=== PATIENT | female | born 1985 | race Caucasian/White ===

== ENCOUNTER 2018-03-29 11:33 | Inpatient (IN) | payer OTHER ==
[2018-03-29] MEDS ORDERED: EPSOM SALT 454 GM TP PRN (12:14)
[2018-03-29] MEDS ORDERED: MISOPROSTOL 200 MCG TAB PR PRN (12:14)
[2018-03-29] MEDS ORDERED: OLIVE OIL 118 ML BTL MISC PRN (12:14)
[2018-03-29] MEDS ORDERED: IBUPROFEN 600 MG TAB PO PRN (12:14)
[2018-03-29] MEDS ORDERED: LIDOCAINE 1% 300 MG/30 ML SDV SC PRN (12:14)
[2018-03-29] MEDS ORDERED: OXYTOCIN/RINGERS LACTATE 1,000 ML IV PRN (12:14)
[2018-03-29] MEDS ORDERED: TERBUTALINE SULFATE 1 MG/ML VIAL IV PRN (12:14)
[2018-03-29 12:30] LABS: PLATELET COUNT 203 10^3/uL (150-400)
[2018-03-29] MEDS: LR 1,000 ML IV PRN ×2 (12:55→14:05)
[2018-03-29] MEDS ORDERED: BUPIVACAINE 0.25% 30 ML SDV ONE (13:13)
[2018-03-29] MEDS ORDERED: fentaNYL 2MCG/ML/BUP 0.1% RTU 100 ML BAG EP ONE (13:13)
[2018-03-29] MEDS ORDERED: PHENYLEPHRINE HCL 100 MCG/ML SYR ONE (13:13)
[2018-03-29] MEDS ORDERED: fentaNYL 100 MCG/2 ML INJ ONE (13:13)
[2018-03-29] MEDS ORDERED: AMMONIA AROMATIC 1 EACH AMP IH ONE (14:13)
[2018-03-29] MEDS ORDERED: OXYTOCIN 10 UNIT/ML VIAL ONE (14:14)
[2018-03-29] MEDS ORDERED: ONDANSETRON 4 MG/2 ML VIAL IVP PRN (14:31)
--- NOTE | 2018-03-29 14:31 | PREANESOB ---
Obstetric Pre-Anesthesia Info - General Info Proposed Procedure: [place] : 3 Para: 2 NIRMAL: 03/29/18 Gestational Age: 40 week(s) and 0 day(s) - Info Status: Full Term Monitors: External FHR Pattern: Reassuring - Labor Status Cervical Dilation per last OB SVE: 6 Indications for Labor Analgesia: Pain Control Labor Epidural: Proposed Anesthesia ROS: labor pain Allergies/Adverse Reactions: Allergy/AdvReac Type Severity Reaction Status Date / Time No Known Allergies Allergy Unverified 11/10/10 18:42 Home Medications: Medication Instructions Recorded NO HOME MEDS 11/10/10 oxyCODONE/APAP 5/325 [Percocet 5 - 10 mg PO Q4-6PRN PRN #15 tab 11/10/10 5/325] Visit Medications: Generic Name Dose Route Start Last Admin Trade Name Freq PRN Reason Stop Dose Admin Lactated Ringer's 1,000 mls @ 0 mls/hr 03/29/18 12:14 Lr IV 03/30/18 12:13 PRN PRN SEE PROTOCOL CONDITIONS Protocol Per Protocol Oxytocin/Lactated Ringer's 1,000 mls @ 125 mls/hr 03/29/18 12:14 Pitocin 20 Units/Lr (Premix) IV PRN PRN Post bleeding Ibuprofen 600 mg 03/29/18 12:14 Motrin PO ONCE PRN post , pain Lidocaine HCl 300 mg 03/29/18 12:14 Lidocaine Hcl 1% SC 09/25/18 12:13 ONCE PRN episiotomy Magnesium Sulfate 454 gm 03/29/18 12:14 Epsom Salt TP 09/25/18 12:13 Q1H PRN perineal discomfort Misoprostol 800 - 1,000 mcg 03/29/18 12:14 Cytotec LA ONCE PRN Vaginal Atony/Bleeding [place] Oil 118 ml 03/29/18 12:14 Sweet Oil MISC 09/25/18 12:13 ONCE PRN perineal massage Terbutaline Sulfate 0.25 mg 03/29/18 12:14 Brethine IV 09/25/18 12:13 ONCE PRN Tachysystole Discontinued Medications Generic Name Dose Route Start Last Admin Trade Name Freq PRN Reason Stop Dose Admin Ammonia (Aromatic Spirit) Confirm 03/29/18 14:13 Ammonia Aromatic Administered 03/29/18 14:14 Dose 1 each IH .STK-MED ONE Bupivacaine HCl Confirm 03/29/18 13:13 Sensorcaine 0.25% Sdv Administered 03/29/18 13:14 Dose 30 ml .ROUTE .STK-MED ONE Fentanyl Confirm 03/29/18 13:13 Sublimaze Administered 03/29/18 13:14 Dose 100 mcg .ROUTE .STK-MED ONE Fentanyl/Bupivacaine HCl Confirm 03/29/18 13:13 Fentanyl/Bupivacaine/Ns 2 Mcg/Ml 0.1% (Premix Administered 03/29/18 13:14 Dose 100 ml EP .STK-MED ONE Oxytocin Confirm 03/29/18 14:14 Pitocin Administered 03/29/18 14:15 Dose 10 unit .ROUTE .STK-MED ONE Phenylephrine HCl Confirm 03/29/18 13:13 Neosynephrine Administered 03/29/18 13:14 Dose 1,000 mcg .ROUTE .STK-MED ONE - Anesthesia History Response to Local Anesthetics: Normal Anesthesia & Operative History: No Prior Problems Family Anesthesia History: Not Applicable - Social History Substance Use/Abuse: Denies - Vital Signs Height/Weight (Nursing): Height 152.4 cm Weight 73.482 kg - Focused Exam Neck exam: FROM Mallampati Score: Class 2 Mouth exam: normal dental/mouth exam Pulmonary: no respiratory distress Cardiovascular: regular rate and rhythym Labs: 03/29/18 12:15 Patient ABO/Rh O POSITIVE 03/29/18 12:15 - Plan Consent Signed and on Chart: Yes Patient/Guardian Understands and Agrees to Plan: Yes Urgent/Emergent Case: Aniket ferrer completed preop but documented later for safe timely pt care
--- NOTE | 2018-03-29 14:47 | GHP ---
DATE OF ADMISSION: 03/29/2018 ADMISSION DIAGNOSIS: Intrauterine at 40 weeks' gestation, in active labor. HISTORY: The patient is a 32-year-old 3, para 2-0-0-2 who is 40 weeks' gestation. Her estim ated date of confinement is 03/29/2018 dated by a 7 week 4 day ultrasound due to a history of irregul ar cycles. The patient received care with the midwives starting at 7 weeks 4 days. Her pre gnancy has been uncomplicated. was unplanned. She had taken Plan B, but is accepting of t he . Patient began having contractions yesterday last night at 11 p.m. They began increasi ng in frequency and intensity at 10 o'clock in the morning. She arrived and was found to be dilated to 4 cm. She requested and received an epidural, which has been providing adequate pain relief. 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 MEDICATIONS: vitamins and iron. SURGICAL HISTORY: Cholecystectomy. And CAD under medical history ALLERGIES: No known drug allergies. FAMILY MEDICAL HISTORY: Noncontributory. SOCIAL HISTORY: Patient is . She lives with her . She denies tobacco, alcohol, or dr ug use. SUPPLY OFFICER HISTORY: Menarche age 13. Periods every 38 days, lasting 7 days. She is a 3, para 2 -0-0-2. In 01/2005 she had a spontaneous vaginal delivery at 40 weeks' gestation of a 7 pound 3 ounc e male infant. She was induced with that . In 03/2010 she had a spontaneous vaginal delive ry of a 6 pound 9 ounce female . Current has been uncomplicated. Patient does have a history of abnormal Pap smear and had cryosurgery in 2004. Pap smears have been normal since then. She denies any history of any sexually transmitted diseases. REVIEW OF SYSTEMS: Ten-point review of systems is negative with the exception of the above-mentioned pertinent positives. Positive movement delays. Denies any loss of fluid or vaginal bleeding. Denies any headache or changes in vision. PHYSICAL EXAMINATION: VITAL SIGNS: Stable. GENERAL APPEARANCE: She is alert and oriented x3. PSY CH: Appropriate affect. MUSCULOSKELETAL: Grossly intact. NEURO: Grossly intact. NECK: Mobile a nd supple. CARDIOVASCULAR: Heart rate is irregularly irregular. LUNGS: Clear to auscultation bila terally. ABDOMEN: Gravid, nondistended, nontender. The patient is having contractions every 5-7 mi nutes. status is category 1 reactive NST. is in the vertex presentation. EXTREMITIES: Reveal no calf tenderness or edema. LABS: Blood type O positive. Antibody screen negative. Rubella immune. GBS negative. HB sAg negative. HIV negative. Her 50 g glucose was 122. She is an SMA carrier, the father of the bab y is negative. ASSESSMENT AND PLAN: A 32-year-old 3, para 2-0-0-2, at 40 weeks' gestation in active labor. The patient has requested an epidural and is resting comfortably. She will be assessed several hour s later, and we will discuss augmentation as needed. /[id number]/MODL
[2018-03-29] MEDS ORDERED: fentaNYL 2MCG/ML/BUP 0.1% RTU 100 ML EP SCH (15:00)
[2018-03-29] MEDS ORDERED: LR 500 ML IV SCH (15:00)
--- NOTE | 2018-03-29 17:26 | OBPROG ---
Labor Progress Note Assessment/Plan: Assessment: Plan: Subjective/Intrapartum Course: 03/29/18 17:13 patient comfortable with epidural. rested for an hour. was rechecked and found to be completely dilated. arom. small amount of clear fluid. began pushing. not pushing well due to epidural. trying multiple positions. Objective: 03/29/18 12:15 Patient ABO/Rh O POSITIVE 03/29/18 12:15 - SVE Dilation (cm): 10 Effacement (%): 100 Station: +2, +3 Membranes: AROM Amniotic Fluid Color: Meconium Stained (light) - Contraction Pattern Assessment Current Contraction Pattern: Irregular - FHR Assessment [place] FHR Pattern Variability: Moderate FHR Category: 1 - Procedures Non-surgical Procedures: Amniotomy - AP Antepartum Course: 03/29/18 17:33 unintended but welcome . initiated care at 7 weeks. hx long cycles. dated by 7 weeks scan. saw midwives for care. contractions began last night. arrived in active labor. requested epidural. quick progress. Oxytocin Orders Assessment - Pre-Induction/Augmentation Assessment Gestational Age: 40 week(s) and 0 day(s) ICD10 Worksheet Patient Problems: Problems Problem Status Onset Delivery normal Acute
[2018-03-29] MEDS ORDERED: HYDROCORTISONE 0.5% CREAM TP PRN (17:36)
[2018-03-29] MEDS ORDERED: SIMETHICONE 80 MG TAB CHEW PO PRN (17:36)
--- NOTE | 2018-03-29 17:42 | OBDEL ---
Info Type: Vaginal Presentation at Delivery: Vertex L&D Analgesia/Anesthesia Type: Epidural GBS+: No - Hospital Course Intrapartum: 03/29/18 17:13 patient comfortable with epidural. rested for an hour. was rechecked and found to be completely dilated. arom. small amount of clear fluid. began pushing. not pushing well due to epidural. trying multiple positions. Indications for Delivery: Spontaneous Labor Vaginal Delivery - Delivery Provider Delivery Physician/CNM: Lori Burnett - Labor and Delivery Onset of Contractions Date: 03/29/18 Onset of Contractions Time: 10:00 Onset of Contractions Type: Spontaneous Rupture of Membranes Date: 03/29/18 Rupture of Membranes Time: 16:20 Rupture of Membranes Type: Artificial Amniotic Fluid Color: Meconium Stained (light) Dilation Complete Date: 03/29/18 Dilation Complete Time: 16:20 Placenta Delivery Date: 03/29/18 Placenta Delivery Time: 17:22 Total Hours of Labor: 7 Non-surgical Procedures: Amniotomy Vaginal Sponge Count Correct: Yes Vaginal Needle Count Correct: Yes Vaginal Sweep Performed: Yes EBL: 200 Delivery Events: Other (Specify) (trailing membranes removed. uterus explored after. no additional noted) [place] Data NIRMAL: 03/29/18 Gestational Age: 40 week(s) and 0 day(s) [place] Delivery Date: 03/29/18 Delivery Time: 17:17 Sex of Infant: Male Score (1 Min): 8 Score (5 Min): 9 ICD10 Worksheet Patient Problems: Problems Problem Status Onset Delivery normal Acute
[2018-03-29] MEDS: ACETAMINOPHEN 325 MG TAB PO SCH (18:45)
[2018-03-30] MEDS: DOCUSATE SODIUM 100 MG CAP PO PRN ×2 (01:03→12:47)
[2018-03-30] MEDS: ACETAMINOPHEN 325 MG TAB PO SCH ×4 (01:03→18:34)
[2018-03-30] MEDS: IBUPROFEN 600 MG TAB PO SCH ×4 (01:04→18:34)
--- NOTE | 2018-03-30 11:31 | OBPP ---
Progress Note Assessment/Plan: Assessment: 32 y/o PPD #1 s/p doing well Plan: support and routine PPC. Likely d/c home tomorrow. 03/30/18 11:31 Subjective/ Course: 03/30/18 11:29 Pt is doing well this am. She is ambulating and voiding without difficulty. She has min lochia and cramping is controlled with Ibuprofen and Tylenol. Baby is doing well, just cluster feeding at night. Objective: 03/29/18 12:15 Patient ABO/Rh O POSITIVE 03/29/18 12:15 Temp Pulse Resp BP Pulse Ox 36.3 C 70 15 88/54 L 90 L 03/30/18 07:49 03/30/18 07:49 03/30/18 07:49 03/30/18 07:49 03/30/18 07:49 Uterine Position/Fundal Height: Umbilicus -2 Uterine Tone: Firm Physical Exam - Physical Exam General Appearance: alert, no apparent distress Neck: non-tender, full range of motion, supple Respiratory: chest non-tender, lungs clear, normal breath sounds Cardiac/Chest: regular rate, rhythm Abdomen: normal bowel sounds Extremities: swelling (no), Manuel's sign (neg)
--- NOTE | 2018-03-30 12:36 | POSTANESTH ---
Post Anesthetic Evaluation Cardiovascular Status: Normal, Stable Respiratory Status: Normal, Stable Level of Consciousness/Mental Status: Can Participate in Eval Pain Control: Adequate, Prn Tx Ordered Nausea/Vomiting Control: Adequate, Prn Tx Ordered Complications Possibly Related to Anesthesia: None Noted
[2018-03-31] MEDS: IBUPROFEN 600 MG TAB PO SCH ×4 (00:15→18:18)
[2018-03-31] MEDS: DOCUSATE SODIUM 100 MG CAP PO PRN ×2 (00:16→12:06)
[2018-03-31] MEDS: HYDROCODONE/APAP 5/325 TAB PO PRN ×3 (00:19→12:06)
[2018-03-31] MEDS: ACETAMINOPHEN 325 MG TAB PO SCH ×4 (05:46→18:18)
[2018-03-31 09:49] VITALS: BP 104/73
--- NOTE | 2018-03-31 15:24 | OBPP ---
Progress Note Assessment/Plan: Assessment: ppd# 2 s/p breast feeding Plan: routine post care and discharge instructions 03/31/18 15:22 Subjective/ Course: 03/30/18 11:29 Pt is doing well this am. She is ambulating and voiding without difficulty. She has min lochia and cramping is controlled with Ibuprofen and Tylenol. Baby is doing well, just cluster feeding at night. 03/31/18 15:23 patient is doing well. pain is well controlled. breast feeding is going well. worked with which helped. normal lochia. denies headache and changes in vision. mood stable. Objective: 03/29/18 12:15 Patient ABO/Rh O POSITIVE 03/29/18 12:15 Temp Pulse Resp BP Pulse Ox 36.5 C 67 16 104/73 98 03/31/18 08:00 03/31/18 08:00 03/31/18 08:00 03/31/18 08:00 03/31/18 08:00 Physical Exam - Physical Exam Neck: non-tender, full range of motion, supple Respiratory: chest non-tender, lungs clear, normal breath sounds, respiratory distress Cardiac/Chest: normal peripheral pulses, regular rate, rhythm Abdomen: normal bowel sounds, non-tender, other (fundus firm and non tender) Extremities: normal range of motion, non-tender, normal inspection, normal capillary refill Skin: normal color, warm/dry Neuro/Psych: no motor/sensory deficits, alert, normal mood/affect, oriented x 3
--- NOTE | 2018-03-31 15:26 | OBGCSDC ---
General Delivery Information - General Info : 3 Para: 3 Abortions: 0 Type: Vaginal L&D Analgesia/Anesthesia Type: Epidural Admission Date: 03/29/18 Labs: Patient ABO/Rh O POSITIVE 03/29/18 12:15 Hct 34.7 % (38.0-47.0) L 03/29/18 12:15 - Hospital Course Antepartum: 03/29/18 17:33 unintended but welcome . initiated care at 7 weeks. hx long cycles. dated by 7 weeks scan. saw midwives for care. contractions began last night. arrived in active labor. requested epidural. quick progress. Intrapartum: 03/29/18 17:13 patient comfortable with epidural. rested for an hour. was rechecked and found to be completely dilated. arom. small amount of clear fluid. began pushing. not pushing well due to epidural. trying multiple positions. : 03/30/18 11:29 Pt is doing well this am. She is ambulating and voiding without difficulty. She has min lochia and cramping is controlled with Ibuprofen and Tylenol. Baby is doing well, just cluster feeding at night. 03/31/18 15:23 patient is doing well. pain is well controlled. breast feeding is going well. worked with which helped. normal lochia. denies headache and changes in vision. mood stable. Vaginal - Delivery Provider Delivery Physician/CNM: Lori Burnett - Diagnosis Labor: Spontaneous Rupture of Membranes Type: Artificial Amniotic Fluid Color: Meconium Stained (light) Delivery Events: Other (Specify) (trailing membranes removed. uterus explored after. no additional noted) - Procedures Non-surgical Procedures: Amniotomy - Delivery Non-surgical Procedures: Amniotomy EBL: 200 [place] Data NIRMAL: 03/29/18 Gestational Age: 40 week(s) and 2 day(s) [place] Delivery Date: 03/29/18 Delivery Time: 17:17 Sex of Infant: Male Score (1 Min): 8 Score (5 Min): 9 Discharge Information - Discharge Information Instruction/Follow Up: Four Weeks (mood check ), Six Weeks (post visit)
== END 2018-03-31 18:27 | disposition home or self-care (01) | DRG 775 ==
LOC: FLD 11:33 → OBSVTOIN 12:18 → FOB 20:16
PROVIDERS: ADMIT Obstetrics & Gynecology; ATTEND Obstetrics & Gynecology
PROC: 10E0XZZ Delivery of Products of Conception, External Approach (ICD-10-PCS; principal; 2018-03-29)
DX: O80 Encounter for full-term uncomplicated delivery (principal); Z37.0 Single live birth; Z3A.40 40 weeks gestation of pregnancy
CPT/HCPCS: J2370; J2590; J3010